=== PATIENT | male | born 1975 | race Hispanic/Latino ===

== ENCOUNTER 2017-10-27 09:00 | Outpatient (CLI) | payer OTHER ==
[2017-10-27 09:59] LABS: #Basophils 0.1 thou/uL (0.0-0.2); #Eosinphils 0.2 thou/uL (0.0-0.7); #Lymphocytes 1.6 thou/uL (1.20-3.40); #Monocytes 0.9 thou/uL (0.11-0.59); %Basophils 0.5 % (0.0-1.0); %Lymphocytes 16.8 % (21.0-51.0); %Monocytes 8.7 % (0.0-10.0); %Neutrophils 71.9 % (42.0-75.0); Hemoglobin 15.5 g/dL (14.0-18.0); Mean Corpuscular HGB CONC 33.9 g/dL (32.0-36.0); Mean Corpuscular Hemoglobin 30.6 pg (27.0-31.0); Mean Corpuscular Volume 90.1 fl (80.0-94.0); Mean Platelet Volume 7.5 fL (7.4-10.4); Platelet Count 198 thou/uL (130-400); RBC Distribution Width 14.8 % (11.5-14.5); Red Blood Cell (RBC) Count 5.06 mill/uL (4.70-6.10); White Blood Cell (WBC) Count 9.8 thou/uL (4.8-10.8)
== END 2017-10-27 09:01 | disposition home or self-care (01) ==
LOC: LABBT 09:00
PROVIDERS: ATTEND Surgery
DX: Z01.812 Encounter for preprocedural laboratory examination (principal); K42.9 Umbilical hernia without obstruction or gangrene
CPT/HCPCS: 85025

== ENCOUNTER 2017-10-30 08:40 | Day surgery (SDC) | payer OTHER ==
[2017-10-27 09:23] VITALS: BMI 31.3
[2017-10-30] MEDS ORDERED: PROPOFOL 200 MG/20 ML VIAL ONE (09:19)
[2017-10-30] MEDS ORDERED: Dexamethasone 20 MG/5 ML VIAL ONE (09:19)
[2017-10-30] MEDS ORDERED: Lidocaine 1% PF 5 ML VIAL ONE (09:19)
[2017-10-30] MEDS ORDERED: Ketorolac Tromethamine 30 MG/ML VIAL ONE (09:19)
--- NOTE | 2017-10-30 10:18 | HP ---
CHIEF COMPLAINT: Umbilical hernia. HISTORY OF PRESENT ILLNESS: The patient is a 42-year-old male who has a 1-year history of enlarging umbilical hernia causing discomfort. He is here for repair. PAST MEDICAL HISTORY: Otherwise, healthy. PAST SURGICAL HISTORY: None. MEDICATIONS: He is on no medications. ALLERGIES: No known drug allergies. SOCIAL HISTORY: He is . No tobacco, rare alcohol. PHYSICAL EXAMINATION: VITAL SIGNS: Height 5 feet 7, weight 201. Body mass index 31.5, blood pressure 127/81, pulse 81. GENERAL: Well-developed, well-nourished male in no apparent distress. HEENT: Unremarkable. LUNGS: Clear. HEART: Regular rate and rhythm. ABDOMEN: Soft. He has a 3-cm umbilical bulge that is reducible. EXTREMITIES: Unremarkable. ASSESSMENT: Umbilical hernia. PLAN: Umbilical hernia repair with mesh. CONSENT: I discussed the planned procedure as well as risk of bleeding, infection, or recurrence of the hernia. He understands and gives informed consent.
[2017-10-30] MEDS ORDERED: Lidocaine 2% 10 ML INJ ONE (10:34)
[2017-10-30] MEDS ORDERED: Bupivacaine HCl 0.5%/Epinephrine 1:200,000/PF 30 ml Vial ONE (10:34)
[2017-10-30] MEDS ORDERED: CEFAZOLIN/Water 2 GM/20 ML SYRINGE ONE (10:39)
[2017-10-30] MEDS ORDERED: Midazolam HCl 2 mg/2 ml Vial ONE ×2 (10:43→10:51)
[2017-10-30] MEDS ORDERED: Fentanyl 100 MCG/2 ML VIAL ONE ×2 (10:51→12:18)
[2017-10-30] MEDS ORDERED: HYDROmorphone 0.5 MG/0.5 ML SYRINGE ONE (10:52)
[2017-10-30] MEDS ORDERED: Morphine 4 MG/ML VIAL ONE (12:19)
[2017-10-30] MEDS ORDERED: HYDROcodone/Acetaminophen 5/325 mg Tablet ONE (13:26)
--- NOTE | 2017-10-30 15:06 | OP ---
PREOPERATIVE DIAGNOSIS: Umbilical hernia. SURGEON: Deondre Peterson M.D. PROCEDURE PERFORMED: Umbilical hernia repair with mesh. INDICATIONS: A 42-year-old male with a painful umbilical hernia. FINDINGS: There was a 1.5 cm defect containing abdominal fat. A 6.4 cm piece of Proceed mesh used. PROCEDURE IN DETAIL: After informed consent was obtained, the patient was taken to the operating [facility] and given general endotracheal anesthesia, placed in supine position. His abdomen was prepped and draped in usual fashion. Local anesthesia infiltrated subcutaneously and deep. A subumbilical incis ion was performed. The subcutaneous divided sharply. The hernia sac was dissected from skin and harini rounding subcutaneous tissue down to the fascia, then it was excised. The contents reduced. Reducti on was maintained utilizing a 6.4 cm piece of Proceed mesh. This was inserted intra-abdominally, pul led up and the tabs sutured to the fascia with interrupted 0 Ethibond suture. The mesh was further s ecured to the fascia with interrupted 0 Ethibond suture. Then, the skin was sutured to the fascia wi th interrupted 3-0 Vicryl to restore umbilical contour and the skin closed with interrupted 4-0 Rapid e. Steri-Strips applied. Sterile bandage applied. The patient tolerated the procedure well and was transferred to recovery in good condition. Sponge and needle count verified correct x2.
== END 2017-10-30 15:01 | disposition home or self-care (01) ==
LOC: SDC 08:40
PROVIDERS: ATTEND Surgery
PROC: 0WUF0JZ Supplement Abdominal Wall with Synthetic Substitute, Open Approach (ICD-10-PCS; principal; 2017-10-30)
DX: K42.9 Umbilical hernia without obstruction or gangrene (principal)
CPT/HCPCS: 96374; J0670; J1100; J1170; J1885; J2001; J2250; J2270; J2704; J3010